=== PATIENT | male | born 1995 | race Caucasian/White ===

== ENCOUNTER 2018-03-23 19:47 | Emergency (ER) | payer BC ==
[~2018-03-23] VITALS: Ht 195.6 cm; Wt 122.5 kg
[2018-03-23] MEDS ORDERED: METHIMAZOLE5 MG PO (19:59)
[2018-03-23 20:49] LABS: ABSOLUTE EOSINOPHILS 0.2 thou/uL (0.0-0.7); ABSOLUTE LYMPHOCYTES 2.3 thou/uL (0.8-5.3); ABSOLUTE MONOCYTES 0.8 thou/uL (0.0-1.2); ABSOLUTE NEUTROPHILS 3.9 thou/uL (1.6-8.1); BASOPHILS 0.4 %; EOSINOPHILS 2.6 %; HEMATOCRIT 40.4 % (42.0-52.0); HEMOGLOBIN 13.6 gm/dL (14.0-18.0); LYMPHOCYTES 32.1 %; MCH 27.6 pg (26.0-34.0); MCHC 33.7 g/dL (28.0-37.0); MCV 81.9 fL (80.0-100.0); MONOCYTES 10.7 %; MPV 7.6 fl. (7.2-11.1); NUCLEATED RBCS 0 /100WBC; PLATELET COUNT* 275 thou/uL (150-400); POLYS 54.2 %; RBC 4.93 mil/uL (4.50-6.00); RDW-CV 12.8 % (10.5-14.5); WBC 7.2 thou/uL (4.0-11.0)
[2018-03-23 20:56] LABS: CALCIUM 8.9 mg/dL (8.5-10.1); CREATININE 1.1 mg/dL (0.6-1.3); POTASSIUM 3.9 mmol/L (3.5-5.1)
[2018-03-23 21:01] LABS: TOTAL BILIRUBIN 0.3 mg/dL (<0.1-1.0)
[2018-03-23 21:01] LABS: URINE BILIRUBIN NEGATIVE (Negative); URINE BLOOD NEGATIVE (Negative); URINE CLARITY CLEAR; URINE COLOR YELLOW; URINE GLUCOSE-RANDOM NEGATIVE (Negative); URINE KETONES NEGATIVE (Negative); URINE LEUKOCYTES-REFLEX NEGATIVE (Negative); URINE NITRITE-REFLEX NEGATIVE (Negative); URINE PROTEIN NEGATIVE (Negative); URINE SPECIFIC GRAVITY >= 1.030 (1.005-1.030); URINE UROBILINOGEN 0.2 E.U./dl (0.2-1.0)
[2018-03-23 21:08] LABS: AMP/METHAMP Negative (Negative); BARBITURATES Negative (Negative); BENZODIAZEPINES Negative (Negative); COCAINE Negative (Negative); METHADONE Negative (Negative); OPIATES Negative (Negative); PCP Negative (Negative); THC Negative (Negative)
[2018-03-23] MEDS ORDERED: AMITRIPTYLINE H25 M2 PO (22:22)
[2018-03-23 22:36] VITALS: BP 136/69
--- NOTE | 2018-03-24 12:31 | EKG ---
[place] [address] ELECTROCARDIOGRAM REPORT Name: CARLOS MANUELTULIONATALIE CAVANAUGH Room: [facility]#: [id number] Admission: 03/23/18 Attend Phys: Discharge: 03/23/18 Date of : [birth year] Report #: [id number] THIS REPORT FOR: //name// [facility] ED Test Date: 2018-03-23 Test Time: 19:54:46 Pat Name: TULIO HOROWITZ Department: Room: Gender: M Highway Worker: Jet SUAREZ : 1995 Requested By: Jessenia Gonsales Order Number: [id number] Karon MD: Kory Hayes Measurements Intervals [place] Rate: 101 P: 72 MD: 124 QRS: 77 QRSD: 79 T: 60 QT: 334 QTc: 433 Interpretive Statements Sinus tachycardia Minimal ST depression, diffuse leads No previous ECG available for comparison Electronically Signed On 03-24-2018 12:31:12 [employer] by Kory Hayes [email or web address] <ELECTRONICALLY SIGNED> By: Kory Hayes MD, [facility] 03/24/18 1231 [id number] Kory Hayes MD, FACC /EPI
== END 2018-03-23 22:36 | disposition home or self-care (01) ==
LOC: M.ERS 19:47
PROVIDERS: Personal Emergency Response Attendant
DX: F41.9 Anxiety disorder, unspecified (principal); R07.89 Other chest pain; F17.200 Nicotine dependence, unspecified, uncomplicated; E05.90 Thyrotoxicosis, unspecified without thyrotoxic crisis or storm; Z88.0 Allergy status to penicillin

== ENCOUNTER 2018-12-08 21:16 | Emergency (ER) | payer BC ==
[~2018-12-08] VITALS: Ht 195.6 cm; Wt 129.3 kg
[~2018-12-08 21:16] MED LIST: AMITRIPTYLINE H25 M2 PO; METHIMAZOLE5 MG PO
[2018-12-08] MEDS ORDERED: CELEXA20 MG PO (21:23)
[2018-12-08 22:03] VITALS: BP 161/78
--- NOTE | 2018-12-09 16:22 | EKG ---
[place] [address] ELECTROCARDIOGRAM REPORT Name: TULIO HOROWITZ Room: [facility]#: [id number] Admission: 12/08/18 Attend Phys: Discharge: 12/08/18 Date of : [birth year] Report #: [id number] THIS REPORT FOR: //name// [facility] ED Test Date: 2018-12-08 Test Time: 21:20:58 Pat Name: TULIO HOROWITZ Department: Room: Gender: M Claims Attorney: MARI : 1995 Requested By: Callum Goncalves Order Number: [id number] MD: Glynn Chapman Measurements Intervals [place] Rate: 73 P: 70 MS: 72 QRS: 77 QRSD: 105 T: 63 QT: 374 QTc: 413 Interpretive Statements Sinus rhythm Short MS interval Compared to ECG 03/23/2018 19:54:46 Short MS interval now present Sinus tachycardia no longer present ST (T wave) deviation no longer present Electronically Signed On 12-09-2018 16:22:45 CDT by Glynn Chapman [email or web address] <ELECTRONICALLY SIGNED> By: Glynn Chapman MD, [facility] 12/09/182 19 19 Glynn Chapman MD, [facility] /EPI
== END 2018-12-08 22:03 | disposition home or self-care (01) ==
LOC: M.ERS 21:16
DX: S61.211A Laceration without foreign body of left index finger without damage to nail, initial encounter (principal); F41.9 Anxiety disorder, unspecified; E03.9 Hypothyroidism, unspecified; Z88.0 Allergy status to penicillin; W26.8XXA Contact with other sharp object(s), not elsewhere classified, initial encounter; Y93.89 Activity, other specified; Y92.89 Other specified places as the place of occurrence of the external cause; Y99.8 Other external cause status